=== PATIENT | female | born 1995 | race Caucasian/White ===

== ENCOUNTER → 2023-04-24 11:00 | Day surgery (SDC) | payer SELFPAY ==
[2023-04-16 10:48] LABS: Hematocrit 42.6 % (37.0-47.0); Hemoglobin 14.7 g/dL (12.0-16.0); Mean Corp Hgb Conc. 34.5 g/dL (33.0-37.0); Mean Corpuscular Hgb 30.6 pg (27.0-31.0); Mean Corpuscular Volume 88.6 fL (81.0-99.0); Mean Platelet Volume 10.5 fL (7.4-10.4); Platelet Count 312 10^3/uL (130-400); Red Blood Cell Count 4.81 10^6/uL (4.20-5.40); Red Cell Dist. Width 11.9 % (11.5-14.5); White Blood Cell Count 8.6 10^3/uL (4.8-10.8)
[2023-04-16 11:23] LABS: INR 0.91; PT 12.5 Sec (11.4-14.6)
[2023-04-16 11:24] LABS: APTT 25.3 Sec (23.4-35.0)
[2023-04-24] VITALS (9 sets, daily range): BP systolic 95–116; BP diastolic 49–82
== END | disposition home or self-care (01) ==
LOC: COSMETIC 11:00
PROVIDERS: ATTENDING PHYSICIAN Otolaryngology; FAMILY PHYSICIAN Internal Medicine; OTHER PHYSICIAN Internal Medicine Hematology & Oncology
DX: J34.2 Deviated nasal septum (principal); J34.89 Other specified disorders of nose and nasal sinuses; Z41.1 Encounter for cosmetic surgery
CPT/HCPCS: 30420; 36415; 85027; 85610; 85730